=== PATIENT | female | born 1960 ===

== ENCOUNTER 2022-07-30 09:08 | Outpatient (RCR) | payer OTHER, SELFPAY ==
--- NOTE | 2022-09-03 09:47 | MHC.PT.DC ---
[facility] [place] [facility] [place] [facility] [place] [facility] [address] Johana Rodriguez 140 [facility] [phone] F: [phone] F: [phone] F: [phone] F: [phone] Physical Therapy Discharge Report Diagnosis: pelvic floor Date of Surgery: 07/08/2021 Date of Evaluation: 07/30/22 Date of Discharge: 09/03/22 Treatments to Date: 1 Cancellations to Date: 0 No Shows to Date: 0 Discharge Status: Patient Elected to Stop Discharge Summary: Pt called to self d/c following abdominal MRI findings. Electronically signed by: Shanta Roy PT Please sign and return to therapist. Thank you for your referral.
== END 2022-09-03 09:48 | disposition home or self-care (01) ==
LOC: HO.PT 09:08
PROVIDERS: PCP Student in an Organized Health Care Education/Training Program; Visit Provider Obstetrics & Gynecology Gynecologic Oncology
DX: R10.2 Pelvic and perineal pain (principal)
CPT/HCPCS: 97162